=== PATIENT | female | born 1990 | race Caucasian/White ===

== ENCOUNTER 2016-11-16 21:19 | Outpatient (CLI) | payer BC, OTHER ==
[~2016-11-16] VITALS: Ht 162.6 cm; Wt 125.0 kg
[2016-11-16 22:31] VITALS: Ht 162.6 cm; Wt 125.0 kg
[2016-11-16 22:34] LABS: HEMATOCRIT 31.7 % (37-47); MEAN CELL VOLUME 84.1 fL (80-100); MEAN CORPUSCULAR HEMOGLOBIN 28.4 pg (25-34); PLATELET COUNT 199 K/uL (130-400); RED BLOOD COUNT 3.77 M/uL (4.2-5.4); WHITE BLOOD COUNT 12.09 K/uL (4.8-10.8)
[2016-11-16 22:46] LABS: MEAN CORPUSCULAR HGB CONC 33.8 g/dl (32-36)
[2016-11-16 22:51] LABS: INR 0.9 (0.9-1.1); PARTIAL THROMBOPLASTIN RATIO 1.1; PROTHROMBIN TIME (PATIENT) 9.8 SECONDS (9.0-12.0)
[2016-11-16 23:41] LABS: FIBRINOGEN* 365 mg/dl (184-400)
--- NOTE | 2016-11-17 02:24 | Discharge Instructions ---
Discharge Instructions Date of Service Nov 17, 2016. Admission Reason for Admission: Check Bleeding Discharge Discharge Diagnosis / Problem: bleading Discharge Goals Goal(s): Continuing OB care Activity Recommendations Activity Limitations: as noted below ACTIVITY RECOMMENDATIONS: See Labor Sheet. SPECIAL CARE INSTRUCTIONS: Call Doctor if: * Regular contractions every 5 minutes or greater than contractions in one hour. * Bleeding * Water breaks or is leaking * Decreased movement * Fever >100.4 degrees F * Pain not relieved by routine measures or pain medication ordered. FOLLOW UP VISIT: Return to Labor and Delivery on for /call for appointment time . Follow-up Visit with: When: . Current Hospital Diet Patient's current hospital diet: Discharge Diet Recommended Diet: Regular Diet Pending Studies Studies pending at discharge: no Medical Emergencies . Who to Call and When: Medical Emergencies: If at any time you feel your situation is an emergency, please call 911 immediately. . Non-Emergent Contact Non-Emergency issues call your: Specialist . . "Provider Documentation" section prepared by Tyrese Stockton. . VTE Core Measure Inpt VTE Proph given/why not?: Treatment not indicated
--- NOTE | 2016-11-17 06:49 | DIAGNOSTIC IMAGING REPORT ---
Limited ultrasound LIMITED (US) CLINICAL HISTORY: blending at 19 weeks gestation bleeding TECHNIQUE: Ultrasound COMPARISON STUDY: None FINDINGS: Single, viable intrauterine of approximately 19 weeks 5 days gestational age. Breech presentation. heart rate 131 bpm. IMPRESSION: Single, viable intrauterine estimated at 19 weeks 5 days gestational age. Electronically signed by: Tree Garay M.D. 11/17/2016 6:47 AM Dictated Date/Time: 11/17/2016 6:46 AM
--- NOTE | 2016-11-17 10:36 | HISTORY & PHYSICAL EXAMINATION ---
DATE OF ADMISSION: 11/16/2016 HISTORY OF PRESENT ILLNESS: This is a 26-year-old patient at 19+ weeks who presented to labor and delivery with bleeding. The patient reported that she had intercourse early on that day and had 2 episodes of vaginal bleeding. On arrival to labor and delivery, she had no shortness of breath, no chills, no fever. There was no gross bleeding. She did have some bleeding, however, in her underwear. The patient was evaluated with speculum exam after her ultrasound was reviewed. Ultrasound earlier showed anterior placenta. Upon speculum exam there was no blood in the vagina. The cervix appeared grossly normal. Interestingly enough there was not any sign of bleeding in the vaginal vault. As stated above, there was no gross blood in the vault as well. There were no lacerations or tears in the vulva or perineum. The patient was sent for an ultrasound which was reviewed and found to be unremarkable. Labs were done as well which was unremarkable. The patient was therefore finally discharged home in stable condition. 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 ASSESSMENT AND PLAN: A 26-year-old at 19+ weeks presented with complaints of bleeding. No bleeding is seen on physical exam. Ultrasound was done and was unremarkable. Labs are reviewed. The patient is discharged home in stable condition. The patient knows to follow up in clinic or call back if this occurs again.
== END 2016-11-17 02:32 | disposition home or self-care (01) ==
LOC: C.OPB 21:19 → C.LD 21:21 → C.OPB 11-17 02:32
PROVIDERS: ATTEND Obstetrics & Gynecology
DX: O46.92 Antepartum hemorrhage, unspecified, second trimester (principal); Z3A.19 19 weeks gestation of pregnancy

== ENCOUNTER 2017-04-02 11:07 | Inpatient (IN) | payer OTHER ==
[~2017-04-02] VITALS: Ht 162.6 cm; Wt 129.0 kg
[2017-04-02] MEDS ORDERED: LACTATED RINGER'S 1000ML 1,000 ML IV SCH (12:22)
[2017-04-02] MEDS ORDERED: LACTATED RINGER'S 1000ML 1,000 ML IV PRN (12:22)
[2017-04-02 12:38] VITALS: Ht 162.6 cm; Wt 129.0 kg
[2017-04-02] MEDS ORDERED: PRENTAB26 PO (12:41)
[2017-04-02] MEDS ORDERED: FERR1TAB23 (12:44)
--- NOTE | 2017-04-02 13:12 | HISTORY & PHYSICAL EXAMINATION ---
DATE OF ADMISSION: 04/02/2017 HISTORY OF PRESENT ILLNESS: The patient is a 27-year-old G2, P1 due date 04/08/2017 making that 39 weeks and 1 day today. She was seen in the office today for routine care and in the office was found to have spontaneous rupture of membranes, this was around 11:30 a.m. Speculum exam was done by Dr. Enriquez. She was found to be 3-4 cm, 50% effaced, and -2 station. She was grossly ruptured. Nitrazine positive. Ultrasound was done and estimated weight was 4776 grams, was cephalic. The patient is sent to labor and delivery for anticipation of labor. On arrival to labor and delivery, she had no shortness of breath, no chills, no fever, no bloody show. heart rate is category 1. Pelvic exam in labor and delivery is unchanged. COURSE: Has been unremarkable. The patient's is complicated with history of factor V Leiden. The patient is heterozygous for factor V and did not require any anticoagulation therapy. LABS: Blood type is A positive, antibody negative, rubella immune, GBS negative. PAST MEDICAL HISTORY: 1. The patient has history of factor V Leiden heterozygous: 2. History of PCOS. 3. History of anxiety. 4. History of headaches. PAST SURGICAL HISTORY: The patient had appendectomy, cholecystectomy and dental procedures done in the past. 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 weighed 7 pounds 5 ounces. ALLERGIES: No known drug allergies. SOCIAL HISTORY: The patient denies tobacco, drug or alcohol use. FAMILY HISTORY: Noncontributory. PHYSICAL EXAMINATION: GENERAL: Well-developed, well-nourished white female in moderate labor discomfort. Patient is morbidly obese, class 3 obesity. HEART: S1, S2, regular rhythm and rate. LUNGS: Clear to auscultation bilaterally. ABDOMEN: Gravid. heart rate is category 1. PELVIC: The patient is 3-4 cm, 50% effaced, and -2. Amniotic fluid is clear. EXTREMITIES: No cyanosis, clubbing or edema. ASSESSMENT AND PLAN: A 27-year-old G2, P1 at 39 weeks and 1 day, term premature rupture of membranes at 1100 hours. Bedside ultrasound today showed that the infant is 4776 grams. The patient is sent to labor and delivery for anticipation of labor. I have discussed the findings with the patient particularly the estimated weight. Even though the patient has had a baby in the past, her last delivery was a 7-pound . This is much larger and we have discussed risks of shoulder dystocia as well as brachial plexus injury. Infant is still less than 5000 grams and therefore elective is not the recommendation at the moment. Plan therefore is to watch the patient and hopefully have a vaginal delivery. LAKEISHA
[2017-04-02] MEDS ORDERED: LACTATED RINGER'S 1000ML 500 ML IV PRN ×2 (16:53→21:52)
[2017-04-02] MEDS ORDERED: OXYTOCIN 30 UNITS/500ML NSS IV PRN (17:00)
[2017-04-02] MEDS ORDERED: FENTANYL CITRATE INJ 50 MCG/1 ML 2 ML VIAL ONE (20:40)
[2017-04-02] MEDS ORDERED: FENTANYL 2MCG/ML ROPIV 1.25MG/ML 100ML BAG EPI ONE (20:40)
[2017-04-02] MEDS ORDERED: BUPIVACAINE 0.25% 30 ML VIAL ONE (20:40)
[2017-04-02] MEDS ORDERED: EpHEDrine SULFATE INJ 50 MG/ML AMP ONE (20:40)
[2017-04-02 21:03] LABS: HEMATOCRIT 31.4 % (37-47); MEAN CELL VOLUME 81.1 fL (80-100); MEAN CORPUSCULAR HEMOGLOBIN 26.6 pg (25-34); MEAN CORPUSCULAR HGB CONC 32.8 g/dl (32-36); MEAN PLATELET VOLUME 10.4 fL (7.4-10.4); PLATELET COUNT 229 K/uL (130-400); RED BLOOD COUNT 3.87 M/uL (4.2-5.4); WHITE BLOOD COUNT 16.64 K/uL (4.8-10.8)
[2017-04-02] MEDS ORDERED: NALOXONE HCL INJ 1 MG in SODIUM CHLORIDE 0.9% 1000ML 1,000 ML IV PRN (21:52)
[2017-04-02] MEDS ORDERED: NALBUPHINE HCL INJ 10 MG/ML AMP IV PRN (22:00)
[2017-04-02] MEDS ORDERED: NALOXONE HCL INJ 0.4 MG/1 ML VIAL/CARP IV PRN (22:00)
[2017-04-02] MEDS ORDERED: EpHEDrine SULFATE INJ 50 MG/ML AMP IV PRN (22:00)
[2017-04-02] MEDS ORDERED: DiphenhydrAMINE HCL 50 MG/ML VIAL IV PRN (22:00)
[2017-04-02] MEDS ORDERED: FENTANYL 2MCG/ML ROPIV 1.25MG/ML 100ML BAG EPI PRN (22:00)
[2017-04-02] MEDS ORDERED: TERBUTALINE SULFATE 1 MG/ML VIAL SQ STA (22:07)
[2017-04-03] MEDS ORDERED: CALCIUM CARBONATE 500 MG CHEWABLE ONE (01:33)
[2017-04-03] MEDS ORDERED: NURSING VERBAL MED ORDER ONE (01:45)
[2017-04-03] MEDS ORDERED: METHYLERGONOVINE MALEATE 0.2 MG/ML AMP ONE (03:39)
[2017-04-03] MEDS ORDERED: HYDROCORTISONE ACETATE 25 MG SUPP PR PRN (04:00)
[2017-04-03] MEDS ORDERED: ACETAMINOPHEN/CODEINE 300/30MG TAB PO PRN (04:00)
[2017-04-03] MEDS ORDERED: SUPERCREAM 0.870 % 15GM JAR EXT PRN (04:00)
[2017-04-03] MEDS ORDERED: OXYTOCIN 30 UNITS/500ML NSS IV PRN (04:00)
[2017-04-03] MEDS ORDERED: BENZOCAINE 20% AER SPR 82.5 GM CAN EXT PRN (04:00)
[2017-04-03] MEDS ORDERED: METHYLERGONOVINE MALEATE 0.2 MG/ML AMP IM ONE (04:00)
[2017-04-03] MEDS ORDERED: OXYCODONE/ACETAMINOPHEN 5-325 TAB PO PRN (04:00)
[2017-04-03] MEDS ORDERED: LANOLIN OINT EXT PRN ×2 (04:00)
[2017-04-03] MEDS ORDERED: TERBUTALINE SULFATE 1 MG/ML VIAL ONE (06:21)
--- NOTE | 2017-04-03 07:26 | Anesthesia Procedure Note ---
Anesthesia Epidural Removal Nt Date & Time Apr 03, 2017 at 07:26 Vital Signs Pain Intensity: 0.0 Notes Mental Status: alert / awake / arousable, participated in evaluation Nausea / Vomiting: adequately controlled Pain: adequately controlled Airway Patency, RR, SpO2: stable & adequate BP & HR: stable & adequate Hydration State: stable & adequate Neuraxial Anesthesia: was administered Anesthetic Complications: no major complications apparent, pt satisfied with anesthetic care Epidural: removed without complications, with tip intact
--- NOTE | 2017-04-03 07:40 | DELIVERY SUMMARY ---
DATE OF OPERATION: 04/02/2017 DELIVERY NOTE: The patient delivered a live male in left occiput anterior presentation. There was no nuchal cord. Estimated weight was 4700 grams, a second degree medial episiotomy was performed in anticipation of a large . This was discussed with the patient prior to delivery and patient had agreed to that. Placenta was spontaneously delivered. Inspection of the placenta showed a 3-vessel cord. Placenta appeared grossly normal. Inspection of the perineum showed the second degree medial episiotomy and a right small periurethral laceration. The second degree episiotomy was repaired in layers with 2-0 Vicryl. Rectal exam post repair showed good sphincter tone. There were no sutures palpated in the rectum. The right periurethral tear was repaired with 3-0 Vicryl. There was good hemostasis at the end of delivery. Estimated blood loss is 500 mL. 's weight is pending via pediatrics. Apgars 8 and 9. All instruments were removed from the vagina and accounted for x2 including sponges and needles. Baby and mother are doing well in recovery. I attest to the content of the Intraoperative Record and any orders documented therein. Any exceptions are noted below. GUALBERTOD
[2017-04-03 09:30] VITALS: BP 123/63; PULSE 104; TEMP 36.8
[2017-04-03] MEDS: IBUPROFEN 600 MG TAB PO PRN ×2 (09:47→19:39)
[2017-04-03] MEDS: FERROUS SULFATE 325 MG TAB PO SCH (11:00)
[2017-04-03] MEDS: DOCUSATE SODIUM 100 MG CAP PO SCH ×2 (11:00→19:38)
[2017-04-03] MEDS: PRENATAL VITAMIN TAB PO SCH (11:10)
[2017-04-03] MEDS: ACETAMINOPHEN 325 MG TAB PO PRN ×2 (12:09→21:08)
[2017-04-03 13:05] VITALS: BP 132/77; PULSE 85; TEMP 36.6; O2SAT 98
[2017-04-03 13:55] VITALS: BP 119/70; PULSE 84; TEMP 36.8
[2017-04-03 15:55] VITALS: BP 119/70; PULSE 84; TEMP 36.8
[2017-04-03 19:25] VITALS: BP 136/77; PULSE 100; TEMP 37
[2017-04-03 23:45] VITALS: BP 108/68; PULSE 85; TEMP 36.7
[2017-04-04 07:09] LABS: HEMATOCRIT 25.7 % (37-47)
[2017-04-04] MEDS: DOCUSATE SODIUM 100 MG CAP PO SCH (07:46)
[2017-04-04] MEDS: PRENATAL VITAMIN TAB PO SCH (07:46)
[2017-04-04] MEDS: FERROUS SULFATE 325 MG TAB PO SCH (07:46)
[2017-04-04] MEDS: ACETAMINOPHEN/CODEINE 300/30MG TAB PO PRN ×2 (07:47→13:56)
[2017-04-04 07:50] VITALS: BP 138/82; PULSE 98; TEMP 36.7
--- NOTE | 2017-04-04 08:16 | OB/GYN Progress Note ---
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 Patient is seen and examined. She feels well, no complaints. Likes to be discharged today Ambulating without dizziness Voiding without difficulty Tolerating regular diet with out N&V Bleeding is minimal No fever/ chills/ CP/ SOB/ N&V/ Leg pain Bottle feeding without problems Date Time Temp Pulse Resp B/P (MAP) Pulse Ox O2 Delivery O2 Flow Rate FiO2 04/03/17 23:45 36.7 85 18 108/68 (81) 04/03/17 23:45 Room Air 04/03/17 19:25 37.0 100 18 136/77 (96) Room Air 04/03/17 15:55 36.8 84 16 119/70 (86) Room Air 04/03/17 15:55 Room Air 04/03/17 13:05 36.6 85 20 132/77 (95) 98 Room Air 04/03/17 09:30 36.8 104 18 123/63 (83) Room Air 04/03/17 09:30 Room Air Last 24 Hours Test 04/04/17 06:28 Hemoglobin 8.2 g/dL Hematocrit 25.7 % PE: General: Alert, orientedx3, NAD Abd: soft, NT, fundus firm, below Umbilicus Perineum intact, Lochia rubra minimal Ext; NT, no edema AP: 27 yo s/p , ppd# 1 VSS Afebrile doing well Continue routine care Anemic: asymptomatic Will start iron bid Recheck H&H at noon All questions were answered Instructions were given when to call D/C home after labs
[2017-04-04] MEDS ORDERED: FRRS300 PO (08:17)
[2017-04-04] MEDS ORDERED: MTR600X PO (08:17)
[2017-04-04] MEDS ORDERED: CLC100 PO (08:17)
--- NOTE | 2017-04-04 08:18 | Discharge Instructions ---
Discharge Instructions Date of Service Apr 04, 2017. Admission Reason for Admission: R/O Rupture Of Membranes Discharge Discharge Diagnosis / Problem: Discharge Goals Goal(s): Routine recovery after delivery Medications Continue Dispensed Medications: lansinoh Activity Recommendations Activity Limitations: as noted below ACTIVITY RECOMMENDATIONS: * Gradual return to full activity over the next 2-3 weeks. * No lifting - nothing heavier than baby over the next 2-3 weeks. * Do not engage in vigorous exercise, sexual activity or sports until cleared by your physician. * Do not drive or operate any motorized equipment until cleared by your physician. * You may shower/bathe daily. BREAST CARE: If you are not breast feeding: * Wear a supportive bra 24 hours a day for one to two weeks. * Avoid stimulating your breasts and nipples as much as possible during the first few weeks after delivery. * When taking a shower, have the warm water hit your back, not breasts. * When your breasts feel full, apply ice packs. Usually three to four times a day helps ease the discomfort. * Take a mild pain medication (Tylenol/Motrin) when you are uncomfortable. If breast feeding: * Use breast milk to lubricate nipples. Lansinoh cream may be used for sore nipples. You do not need to remove cream prior to breast feeding. If using a different brand of cream, check the label for directions regarding removal of cream prior to nursing. * Wear a supportive bra. * If having problems with breasts or breast feeding, call a informatics consultant or your health care provider. EPISIOTOMY CARE: After delivery, if you have an episiotomy (stitches), the following steps will ease discomfort and aid healing. * For the first 24 hours after delivery, place ice packs next to your episiotomy to help reduce swelling. * After the first 24 hour-period, sitz baths, either portable or in the tub, are suggested. A shower with a shower arm sprayed over the episiotomy may be comforting. * Pascale care should be done after each voiding and bowel movement. Squirt warm water from a plastic bottle over the perineum (region of the body between the anus and urinary opening) and pat dry. * Use Dermoplast to ease discomfort. Shake container. [place] directly over the episiotomy. * Place a Tucks on a clean sanitary pad next to your episiotomy. OVER THE COUNTER MEDICATION: * For discomfort or pain, you may use Acetaminophen (Tylenol), Ibuprofen (Advil ), or Naproxen (Aleve) following the package directions. * For constipation you may use Colace following the package directions. SPECIAL CARE INSTRUCTIONS: When you are discharged from the hospital, it is important for you to follow the instructions listed below: * During the first week at home, you should be able to care for yourself and your baby. In addition, the usual light household activities are encouraged. * Limit your activities to the way you feel. Do not try to clean the house or move furniture. Be sensible. * If you actively engage in sports and have done so up until the time of your delivery, you may resume these activities as soon as you feel able. This may take up to one month or even longer. Use good judgment. * Continue to take your vitamins for at least six weeks after the of your baby. * Your diet need not be limited unless you were on a special diet before your delivery. Breast-feeding mothers need around 2500 calories per day and at least 64-80 ounces of fluid per day (8 to 10 glasses). * You should eat foods from the four major food groups. Crash diets or fad diets are to be avoided. Eating lean meats, fresh fruits and vegetables, low-fat dairy products, high fiber foods and a regular exercise program, will help you get back to your pre- weight without putting your health at risk. * Constipation is sometimes a problem after delivery. Take a mild laxative as needed. If breast feeding, Milk of Magnesia is acceptable to use. You may use a suppository or Fleets enema if no episiotomy. * A daily shower or tub bath is suggested. Be sure to thoroughly and gently dry the perineum. * A bloody vaginal discharge will usually continue until around four weeks post . A small amount of bleeding may continue for as long as six weeks. Vaginal discharge changes from the bright red bleeding after delivery to pink then brownish and finally yellowish-pink before becoming white and disappearing. * Bleeding may increase with activity. Your first period may come in 4-8 weeks. If you are breast feeding, your period may be delayed even longer. * [place] (sex) can begin whenever both you and your partner feel comfortable and do not have any form of genital infection. It is recommended that you wait until after your return appointment and discuss with your physician. If you have questions, please talk to your health care practitioner. A condom should be used to prevent infection and . * Foreplay, gentle intercourse and lubrication is very important the first several times to prevent pain. A water-based lubricant such as K-Y jelly or Astroglide may be used. * Tampons may be used six weeks after delivery. * Douching should be avoided for 6 weeks after delivery. * If you have RH negative blood and your baby is RH positive, you will receive RHOGAM by injection prior to discharge. The nurse will give you a card to keep with you that has the date and place that you received RHOGAM after delivery. * During your care, you had a Rubella screen done to check for the presence of rubella antibodies in your blood. If your test was negative, you will receive a Rubella vaccine prior to discharge. This vaccine may cause a fever, soreness at the injection site and flu-like symptoms. If these symptoms persist, notify your health care practitioner. is not advised for three months after a Rubella vaccine. There is a higher chance of having a baby with defects if conceived within three months of getting the vaccine. * If you were discharged 24 hours from delivery or before 48 hours: Visiting nurses will come to your home 48 hours after discharge to assess you and your baby. The visiting nurse will meet with you while you are in the hospital to arrange a time and get directions to your home. * Verbalizes understanding of car seat law as reviewed with patient nursing. * Car Seat hand-out given and reviewed with patient by nursing. * Shaken baby information reviewed with patient by nursing. Call you doctor if: * Heavy bleeding (saturating several pads an hour) or passing clots the size of your fist. * A fever >101 degrees F (38.3 degrees C) on two occasions four hours apart and/or chills. * Unusual pain in the pelvic or vaginal areas. * "Baby Blues" lasting longer than two weeks. If you have any questions or concerns, call your health care practitioner at . FOLLOW-UP VISIT: * Please call the office at to schedule a 6 week examination. It is important you keep this appointment. * It is important for you to make arrangements for either yearly or twice yearly check-ups thereafter. . Current Hospital Diet Patient's current hospital diet: Regular OB Diet Discharge Diet Recommended Diet: Regular Diet Pending Studies Studies pending at discharge: no Medical Emergencies . Who to Call and When: Medical Emergencies: If at any time you feel your situation is an emergency, please call 911 immediately. . Non-Emergent Contact Non-Emergency issues call your: Surgeon, Specialist Call Non-Emergent contact if: temperature is above 100.5, your pain is not controlled, your pain is worsening . . "Provider Documentation" section prepared by Nakul Vann. . VTE Core Measure Inpt VTE Proph given/why not?: Treatment not indicated
[2017-04-04 11:45] LABS: HEMATOCRIT 25.7 % (37-47)
[2017-04-04 14:20] VITALS: BP_DIAS 82; PULSE 98; TEMP 36.7
[2017-04-04] MEDS ORDERED: BISACODYL 5 MG TABEC PO SCH (20:00)
[2017-04-04] MEDS ORDERED: FERROUS SULFATE 325 MG TAB PO SCH (20:00)
[2017-04-05] MEDS ORDERED: BISACODYL 10 MG SUPP PR PRN (07:00)
== END 2017-04-04 14:23 | disposition home or self-care (01) | DRG 775 ==
LOC: C.OPB 11:07 → C.LD 11:07 → C.OPB 12:23 → C.OBG 04-03 09:30 → EDSTATUS 04-03 11:13
PROVIDERS: ADMIT Obstetrics & Gynecology; ATTEND Obstetrics & Gynecology
PROC: 0W8NXZZ Division of Female Perineum, External Approach (ICD-10-PCS; principal; 2017-04-02)
PROC: 10E0XZZ Delivery of Products of Conception, External Approach (ICD-10-PCS; principal; 2017-04-02)
DX: O36.63X0 Maternal care for excessive fetal growth, third trimester, not applicable or unspecified (principal); O99.214 Obesity complicating childbirth; O76 Abnormality in fetal heart rate and rhythm complicating labor and delivery; E66.01 Morbid (severe) obesity due to excess calories; Z37.0 Single live birth; Z3A.39 39 weeks gestation of pregnancy

== ENCOUNTER → 2018-01-19 | Outpatient (CLI) | payer OTHER ==
[~2018-01-19] MED LIST: CLC100 PO; FRRS300 PO; MTR600X PO; PRENTAB26 PO
== END | disposition home or self-care (01) ==
LOC: C.LABSPEC 13:20
PROVIDERS: ATTEND Obstetrics & Gynecology
DX: Z34.81 Encounter for supervision of other normal pregnancy, first trimester (principal); Z3A.00 Weeks of gestation of pregnancy not specified

== ENCOUNTER → 2018-01-21 | Outpatient (CLI) | payer OTHER | END | disposition home or self-care (01) | LOC: C.PAPS 13:45 | PROVIDERS: ATTEND Obstetrics & Gynecology | DX: Z12.4 Encounter for screening for malignant neoplasm of cervix (principal); R87.612 Low grade squamous intraepithelial lesion on cytologic smear of cervix (LGSIL) ==

== ENCOUNTER 2019-04-04 07:43 | Inpatient (IN) ==
[2019-04-04] MEDS ORDERED: LACTATED RINGER'S 1,000 ML IV PRN (08:57)
[2019-04-04] MEDS ORDERED: OXYTOCIN 30 UNITS/500 ML BAG IV PRN ×3 (08:57→12:53)
[2019-04-04] MEDS ORDERED: SODIUM CHLORIDE 0.9% 250 ML IV PRN ×2 (09:15)
--- NOTE | 2019-04-04 09:15 | History & Physical Report ---
Date of Service April 04, 2019 Assessment & Plan (1) Supervision of normal intrauterine in multigravida: Thierno Gordon is a 29yo with a PMH of Heterozygosity of Factor V Leiden, PCOS, LGSIL on pap smear, asthma, uterine fibroid, and anxiety here for induction of labor at 40 weeks due to post-dates confirmed by ultrasound. - Pitocin ordered for aid of contractions - AROM at 9:10 AM today - amniotic fluid initially pink however now showing light meconium - Epidural for pain by patient request. Present on Admission?: Yes (2) Uterine leiomyoma: - 10 cm fibroid in on right side of uterus dx by ultrasound Present on Admission?: Yes (3) LGSIL on Pap smear of cervix: Present on Admission?: Yes (4) Heterozygous factor V Leiden mutation: - follows with Dr. Kelly for Hematology - recommended against chemical VTE with a standard vaginal delivery in post care - if progresses to C/S will anticoagulate post- as appropriate Present on Admission?: Yes (5) Asthma: - well controlled with BID fluticasone inhaler - previously required nighttime oxygen when uncontrolled - will monitor O2 status to ensure no exacerbation Present on Admission?: Yes (6) LGA (large for gestational age) fetus affecting management of mother: (7) History of shoulder dystocia in prior : History of Present Illness Primary Care Provider: Juanita Ward DO Thierno Gordon is a 29yo with a PMH of Heterozygosity of Factor V Leiden, PCOS, LGSIL on pap smear, asthma, uterine fibroid, and anxiety here for induction of labor at 40 weeks due to post-dates confirmed by ultrasound. No complications with this . Has met with Dr. Kelly from Hematology regarding her procoagulant mutations. He recommended against blood thinners during the and only using them if she should have a . Patient has never been on anticoagulation and denies any hx of clots in legs or lungs. Has been attending OB appointments regularly. Asthma well controlled with twice daily fluticasone inhaler. Previously required 2L nighttime oxygen prior to being on steroid inhaler and no longer requires the nighttime oxygen. Was supposed to be tested for sleep apnea but did not follow through with testing. Still feeling contractions and proper movement. Denies any loss of fluids or vaginal blood loss. Labs - Blood type: A+ - Antibody screen: negative - H.1 - Hct: 30.7 - Wbc: 11.28 - Plt 212 (10/16) - Rubella: immune - VDRL/RPR: nonreactive - Gonorrhea: negative - Chlamydia: negative - HIV: negative - HbSAg: negative - GBS: negative - Glucose tolerance x 2: passed x2 Surgical Hx: hx appendectomy, cholecystectomy, wisdom teeth removal OB hx: hx of miscarriage, delivery, shoulder dystocia [employer] hx: hx of LGSIL on cervical exam Allergies Allergy/AdvReac Type Severity Reaction Status Date / Time No Known Allergies Allergy Verified 04/01/19 16:26 Patient History Medical History Uterine leiomyoma (Acute) fibroid PCOS (polycystic ovarian syndrome) (Acute) Obesity during , antepartum (Acute) Nocturnal hypoxia (Acute) uses 2L NC at HS LGSIL on Pap smear of cervix (Acute) Pap smear +HSV, needs repeated at 6 weeks pp Heterozygous factor V Leiden mutation (Acute) No medications; See MFM and Hem/Onc; no treatment unless needs c/section Anxiety (Acute) Encounter for anatomic survey (Resolved) Encounter for pre-operative examination (Resolved) Encounter for supervision of normal in multigravida in first trimester (Resolved) demise (Resolved) 19 week demise; 04/25/18; PPROM Supervision of normal intrauterine in multigravida in second trimester (Resolved) Supervision of normal intrauterine in multigravida in third trimester (Resolved) Asthma exacerbation uses rescue inhalers and meds History of depression no meds- no therapy. History of varicella vaccination Nevus Surgical History History of cholecystectomy at age 23 Hx of appendectomy at age 22 [employer] teeth extracted removed as a teenager Family History Mother Anxiety Depression with anxiety Depression Factor V Leiden mutation Gallbladder disease Grandfather (Paternal) Diabetes Brother Drug abuse Kidney stones Aunt Factor V Leiden mutation Lung cancer Cancer Other No significant family history Social History Preferred Language: Italian Communication Ability: Effective Visual Impairment: No Limitations Hearing Ability: Normal Water Supply Technician Required: No Beliefs That Will Affect Care: None marital status: Current Living Situation: Spouse and Family Current Living Situation Comment: lives with and children 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 Other Information That Helps Us Care for You: No Feels Safe at Home: Yes Safety Concerns: Feels Safe At This Time Smoking Status: Former smoker Do You Dip or Chew Tobacco: No ; Second Hand Exposure: No ; Tobacco Cessation Education Requested by Patient: No Hx Alcohol Use: No Hx Substance Use: No Dental Care, Regularly: Yes Physical Activity Frequency: Does not Exercise Seatbelt Use: always Sunscreen Use: Yes Review of Systems no fever, no chills and no fatigue no cough, no dyspnea and no wheezing + edema; no chest pain and no calf pain + cramping; no abdominal pain, no nausea, no vomiting, no constipation and no di arrhea/loose stools no dysuria and no difficulty urinating + back pain Physical Exam Constitutional: well developed and well nourished Respiratory: normal respiratory effort; no respiratory distress, no labored breathing and no cough Auscultation: no diminished lung sounds, no crackles, no rales, no rhonchi and no wheezes Cardiovascular: Rate/Rhythm: regular rate and regular rhythm Extremities: normal capillary refill and + pedal edema; no calf tenderness Gastrointestinal (Abdomen): Inspection/Auscultation: + abdomen distended and normal bowel sounds Percussion/Palpation: abdomen nontender and no guarding Genitourinary: Speculum/Bimanual Exam: + uterus enlarged OB Exam Abdomen: + fundal height Fundus: + firm and + relation to umbilicus (high above umbilicus on right side); not tender OB Exam Monitor Tracing: + external FHT monitor used Cervical Exam per OB at 9:10 AM Dilation - 5 cm Effacement - 60% Station - -2 Results & Data Vital Signs (Past 12 Hours) Vital Signs Temp Pulse Resp BP 04/04/19 08:37 36.8 C 99 H 22 137/77 04/04/19 07:45 36.8 C 99 H 22 137/77 Code Status & VTE Plan VTE Prophylaxis Plan VTE Prophylaxis will be ordered: No Reason for no VTE drug order: Treatment not indicated (per hematology: will chemically VTE prophylax if converts to C/S) Reason for no VTE mechanical prophylaxis: Treatment not indicated Monitoring External Monitor Category I tracing Baseline HR 130 Moderate variability No accelerations No decelerations Tocodynamometer Inconsistent contractions every 3-4 minutes Supervising Physician Co-Signing Physician Notes Patient seen and evaluated and agree with the above findings and plan. I discussed with Thierno and her partner the significantly increased risk of a shoulder dystocia do to prior history and LGA. Also reviewed risk of PPH do to LGA and large uterine fibroid. Resident Activity Tracking Resident Involvement: Resident Care Provided Care Provided: OB Delivery (1) Asthma Asthma complication type: uncomplicated Asthma persistence: intermittent Asthma severity: mild Qualified Code(s): J45.20 - Mild intermittent asthma, uncomplicated
[2019-04-04 09:37] LABS: Hematocrit (blood only) 30.9 % (37-47); Hemoglobin 9.8 g/dL (12.0-16.0); Mean Corpuscular Hemoglobin 25.2 pg (25-34); Mean Corpuscular Volume 79.4 fL (80-100); Mean Platelet Volume 10.6 fL (7.4-10.4); Platelet Count 205 K/uL (130-400); RDW Coefficient of Variation 16.8 % (11.5-14.5); RDW Standard Deviation 47.9 fL (36.4-46.3); Red Blood Count 3.89 M/uL (4.2-5.4); White Blood Count 11.45 K/uL (4.8-10.8)
[2019-04-04 09:38] LABS: Mean Corpuscular Hgb Conc 31.7 g/dL (32-36)
[2019-04-04] MEDS ORDERED: INFLUENZA ADMINISTRATION CHARGE ONE (12:00)
[2019-04-04] MEDS ORDERED: INFLUENZA VIRUS QUAD VACCINE 0.5 ML SYR IM ONE (12:00)
[2019-04-04] MEDS ORDERED: fentaNYL citrate 100 MCG/2 ML VIAL ONE (12:07)
[2019-04-04] MEDS ORDERED: ePHEDrine sulfate 50 MG/ML AMP ONE (12:08)
[2019-04-04] MEDS ORDERED: BUPIVACAINE 0.25% 30 ML VIAL ONE (12:08)
[2019-04-04] MEDS ORDERED: fentaNYL 2MCG/ML ROPIV 1.25MG/ML 100 ML BAG EPI ONE (12:09)
--- NOTE | 2019-04-04 12:13 | Anesthesiology Progress Note ---
Date of Service April 04, 2019 Anesthesia Post Procedure Vital Signs Vital Signs: Temp Pulse Resp BP 04/04/19 12:08 90 108/58 L 04/04/19 11:06 89 120/64 04/04/19 10:50 84 130/61 04/04/19 10:36 93 H 125/57 L 04/04/19 10:21 85 22 113/56 L 04/04/19 10:05 96 H 141/70 H 04/04/19 09:50 36.8 C 96 H 20 140/67 04/04/19 08:37 36.8 C 99 H 22 137/77 04/04/19 07:45 36.8 C 99 H 22 137/77 Transfer of Care Handoff Completed per policy Notes Mental Status: alert / awake / arousable and participated in evaluation Patient Amnestic to Procedure: Yes Nausea / Vomiting: adequately controlled Pain: adequately controlled Airway Patency, RR, SpO2: stable & adequate BP & HR: stable & adequate Hydration State: stable & adequate Anesthetic Complications: no major complications apparent and Pt Satisfied with anesthetic care
[2019-04-04] MEDS ORDERED: DiphenhydrAMINE HCL 50 MG/ML VIAL IV PRN (12:16)
[2019-04-04] MEDS ORDERED: ePHEDrine sulfate 50 MG/ML AMP IV PRN (12:16)
[2019-04-04] MEDS ORDERED: NALOXONE HCL 0.4 MG/1 ML VIAL/CARP IV PRN (12:16)
[2019-04-04] MEDS ORDERED: fentaNYL 2MCG/ML ROPIV 1.25MG/ML 100 ML BAG EPI PRN (12:16)
[2019-04-04] MEDS ORDERED: NALBUPHINE HCL INJ 10 MG/ML AMP IV PRN (12:16)
[2019-04-04] MEDS ORDERED: NALOXONE HCL 1 MG in SODIUM CHLORIDE 0.9% 1000ML 1,000 ML IV PRN (12:16)
[2019-04-04] MEDS ORDERED: ONDANSETRON INJ 2 MG/ML 2 ML VIAL IV PRN (12:16)
--- NOTE | 2019-04-04 12:16 | Anesthesiology Consultation ---
Date of Service April 04, 2019 Assessment & Plan Chart Review Chart Review: Acceptable Risk for Labor Epidural ASA ASA2 Proposed Anesthesia Anesthesia Type: Labor Epidural History Height/Weight Height: 5 ft 4 in Weight: 136.531 kg Allergies Allergy/AdvReac Type Severity Reaction Status Date / Time No Known Allergies Allergy Verified 04/01/19 16:26 Medications Home Medications Medication Instructions Recorded Confirmed Last Taken Vitamin 1 tab PO DAILY 04/25/18 04/04/19 04/04/19 05:30 albuterol sulfate 2 puff INHALATION QID PRN 04/25/18 04/04/19 04/01/19 07:00 loratadine 10 mg PO DAILY 04/25/18 04/04/19 04/04/19 05:30 montelukast 10 mg tablet 10 mg PO DAILY #90 tab 11/15/18 04/04/19 04/04/19 05:30 fluticasone propion-salmeterol See Rx Instructions .ROUTE .COMPLEX 04/04/19 04/04/19 04/04/19 05:30 [AirDuo RespiClick] iron 10 mg PO DAILY 04/04/19 04/04/19 04/04/19 05:30 Active Medications Generic Name Dose Route Start Last Admin Trade Name Freq PRN Reason Stop Dose Admin Lactated Ringer's 1,000 mls @ 125 mls/hr 04/04/19 08:57 04/04/19 12:04 Lr IV 04/06/19 08:56 999 mls/hr .Q8H PRN Infusion L&D Protocol Protocol Oxytocin 30 units in 500 mls @ 8 mls/hr 04/04/19 09:15 04/04/19 11:30 Pitocin IV 04/06/19 09:14 0.48 units/hr .Q24H PRN 8 mls/hr Labor Induction/Augmentation Titration Protocol 0.48 UNITS/HR Past Medical History Medical History Uterine leiomyoma (Acute) fibroid PCOS (polycystic ovarian syndrome) (Acute) Obesity during , antepartum (Acute) Nocturnal hypoxia (Acute) uses 2L NC at HS LGSIL on Pap smear of cervix (Acute) Pap smear +HSV, needs repeated at 6 weeks pp Heterozygous factor V Leiden mutation (Acute) No medications; See MFM and Hem/Onc; no treatment unless needs c/section Anxiety (Acute) Encounter for anatomic survey (Resolved) Encounter for pre-operative examination (Resolved) Encounter for supervision of normal in multigravida in first trimester (Resolved) demise (Resolved) 19 week demise; 04/25/18; PPROM Supervision of normal intrauterine in multigravida in second trimester (Resolved) Supervision of normal intrauterine in multigravida in third trimester (Resolved) Asthma exacerbation uses rescue inhalers and meds History of depression no meds- no therapy. History of varicella vaccination Nevus Exercise / Class Metabolic Activity II 4-5 Yardwork/Stairs/Walk up hill Past Family History Family History Mother Anxiety Depression with anxiety Depression Factor V Leiden mutation Gallbladder disease Grandfather (Paternal) Diabetes Brother Drug abuse Kidney stones Aunt Factor V Leiden mutation Lung cancer Cancer Other No significant family history Past Surgical History Surgical History History of cholecystectomy at age 23 Hx of appendectomy at age 22 [place] teeth extracted removed as a teenager Past Anesthesia History No Hx of Anesthesia Complications and No Family Hx of Anesthesia Complications History of PONV No Hx of PONV and No Hx of Motion Sickness Social History Smoking Status: Former smoker Do You Dip or Chew Tobacco: No Hx Alcohol Use: No Hx Substance Use: No substance use type: does not use Review of Systems denies fever/cough/ colds/ chest pain/ SOB/ MUKUL denies NE/CVA/Seizure Physical Exam Vital Signs Last Vital Signs Temp 36.8 C 04/04/19 09:50 Pulse 98 H 04/04/19 12:34 Resp 22 04/04/19 10:21 BP 131/82 04/04/19 12:26 Pulse Ox 92 04/04/19 12:34 Testing Laboratory Results 04/04/19 09:25 Blood Type A Positive 04/04/19 09:25 Antibody Screen NEGATIVE 04/04/19 09:25
[2019-04-04] MEDS ORDERED: METHYLERGONOVINE MALEATE 0.2 MG/ML AMP ONE (12:39)
[2019-04-04] MEDS ORDERED: HYDROCORTISONE ACETATE 25 MG SUPP PR PRN (12:53)
[2019-04-04] MEDS ORDERED: bisacodyL 10 MG SUPP PR PRN (12:53)
[2019-04-04] MEDS ORDERED: METHYLERGONOVINE MALEATE 0.2 MG/ML AMP IM ONE (12:53)
[2019-04-04] MEDS ORDERED: ACETAMINOPHEN 325 MG TAB PO PRN (12:53)
[2019-04-04] MEDS ORDERED: SUPERCREAM 0.870% 15 GM JAR EXT PRN (12:53)
[2019-04-04] MEDS ORDERED: DIPHTHERIA/TETANUS/PERTUSSIS 0.5 ML SYR/VIAL IM ONE (12:53)
[2019-04-04] MEDS ORDERED: miSOPROStoL 200 MCG TAB PR ONE (12:53)
[2019-04-04] MEDS ORDERED: BENZOCAINE 20% AER SPR 82.5 GM CAN EXT PRN (12:53)
[2019-04-04] MEDS ORDERED: IBUPROFEN 600 MG TAB PO ONE (13:07)
[2019-04-04] MEDS ORDERED: miSOPROStoL 200 MCG TAB ONE (13:08)
--- NOTE | 2019-04-04 17:36 | Delivery Summary ---
DATE OF OPERATION: 04/04/2019 PROCEDURE: Normal spontaneous vaginal delivery with a first degree perineal laceration repair. SURGEON: Emanuel Fernandez MD. PREOPERATIVE DIAGNOSES: 1. Single intrauterine at 39 weeks 6 days gestational age. 2. Large for gestational age fetus with estimated weight at 9.5 pounds. 3. Uterine leiomyoma of greater than 10 cm. 4. Low grade Pap smear. 5. Heterozygous factor V Leiden mutation without history of clots. 6. Asthma. 7. Prior history of shoulder dystocia with second baby. COMPLICATIONS: None. FINDINGS: Viable female infant with weight pending and Apgars of 7 and 9 at 1 and 5 minutes respectively. ESTIMATED BLOOD LOSS: 300 mL. DRAINS: None. FLUIDS: Continuous lactated ringer. URINE OUTPUT: Not measured. INDICATIONS: The patient is a 29-year-old G4, P2-0-1-2, admitted at 39 weeks 6 days gestational age for elective induction of labor. At initial presentation, the patient was found to be 5 cm dilated, 50% effaced, -2 station. She underwent artificial rupture of membranes for clear fluid and was started on oxytocin per regular protocol. Prior to starting the patient on induction process, we did discuss the patient's history of large for gestational age fetus and current as well as prior history of shoulder dystocia, both of which increased the patient's risk of a recurrent shoulder dystocia considerably and discussed the possibility of injury to baby during delivery. We also further discussed the patient's history of a large uterine fibroid and discussed that this could pose increased risks for bleeding after delivery and discussed a plan to decrease risk of bleeding with a liberal use of uterotonic medications. We also discussed the possibility of the need for blood transfusions if bleeding is heavy and type and cross for 2 units. After rupture of membranes and start of oxytocin, the patient progressed in labor over approximately 3-4 hour period to complete-complete +2 station, at which time she felt there was a strong urge to push. The patient pushed for approximately 2 contractions to achieve ____ delivery of the head. DESCRIPTION OF PROCEDURE: The patient progressed to 10 cm dilated, 100% effaced, +2 station, pushed over intact perineum without anesthesia and delivered a viable female infant with weight and Apgars as noted above. Head of the delivered in JAD position, rest into right transverse. No nuchal cord was noted. Body and shoulders quickly followed. was delivered to the maternal abdomen and noted to be vigorous soon after delivery. A 30-second delayed cord clamping was initiated after which the cord was double clamped and cut. was shortly thereafter taken to the warmer for further observation. Cord segment and cord blood was obtained. Attention was then turned to deliver the placenta, which was delivered intact with 3-vessel cord with gentle cord traction. On inspection of the perineum, vagina, and cervix, there were noted to be a first degree perineal laceration which was repaired with 3-0 Vicryl in continuous running stitch. Needle, sponge and instrument counts were correct at the completion of the case. We did give the patient 1 dose of IM Methergine and 800 mcg of Cytotec per rectum as prophylaxis for heavy bleeding due to the large for gestational age fetus and large uterine fibroid. Both mother and were stable in the immediate post-delivery period. I attest to the content of the Intraoperative Record and any orders documented therein. Any exception s are noted below.
[2019-04-04] MEDS: IBUPROFEN 600 MG TAB PO PRN ×2 (17:54→22:06)
[2019-04-04] MEDS: DOCUSATE SODIUM 100 MG CAP PO SCH (20:30)
[2019-04-05 06:33] LABS: Hematocrit (blood only) 28.5 % (37-47); Hemoglobin 9.2 g/dL (12.0-16.0); Mean Corpuscular Hemoglobin 25.2 pg (25-34); Mean Corpuscular Hgb Conc 32.3 g/dL (32-36); Mean Corpuscular Volume 78.1 fL (80-100); Mean Platelet Volume 10.2 fL (7.4-10.4); Platelet Count 171 K/uL (130-400); RDW Coefficient of Variation 16.6 % (11.5-14.5); RDW Standard Deviation 47.1 fL (36.4-46.3); Red Blood Count 3.65 M/uL (4.2-5.4); White Blood Count 13.06 K/uL (4.8-10.8)
--- NOTE | 2019-04-05 07:04 | Obstetrical Progress Note ---
Date of Service <Tiffany Rivas MD - Last Filed: 04/05/19 07:04> April 05, 2019 Assessment & Plan <Tiffany Rivas MD - Last Filed: 04/05/19 07:04> (1) Encounter for care and examination after delivery: 29 yo F , PPD 1 s/p after induction at 39w6d. Hx Factor V leiden mutation, PCOS, 10 cm uterine fibroid, LGSIL on pap smear. - continue supportive care and teaching for baby care - and bottle feeding - progressing appropriately toward discharge. Day #:: 1 Subjective <Tiffany Rivas MD - Last Filed: 04/05/19 07:04> Ambulation: ambulating normally Voiding: no voiding problems Passing Gas:: Yes Diet Tolerance:: regular diet Feeding Type:: breast feeding Current Pain Level(1-10): 0 Constitutional: + fatigue; no fever and no chills Respiratory: no cough and no dyspnea No shortness of breath Cardiovascular: + edema; no chest pain, no syncope and no calf pain Breast: no breast pain Gastrointestinal: + cramping; no abdominal pain, no nausea, no vomiting, no constipation and no diarrhea/loose stools Genitourinary (female): no dysuria and no difficulty urinating Neurologic: no headache(s) Physical Exam <Tiffany Rivas MD - Last Filed: 04/05/19 07:04> Constitutional well developed and well nourished Respiratory normal respiratory effort; no respiratory distress, no labored breathing and no cough Auscultation: no crackles, no rales, no rhonchi and no wheezes Cardiovascular Rate/Rhythm: regular rate and regular rhythm Heart Sounds: no gallop, no murmur and no cardiac rub Extremities: + pedal edema Gastrointestinal (Abdomen) Inspection/Auscultation: + abdomen distended and normal bowel sounds Percussion/Palpation: + abdomen tender and abdomen soft; no guarding Skin No erythema or tenderness of calves bilaterally Genitourinary Uterus difficult to palpate do to patient's body habitus. She was more tender to palpation on the inferior portion of her pannus closer to where the uterus should be located. Results & Data <Tiffany Rivas MD - Last Filed: 04/05/19 07:04> Vital Signs (Past 12 Hours) Vital Signs Temp Pulse Resp BP Pulse Ox 04/05/19 03:40 36.5 C 86 18 123/79 97 04/04/19 23:20 36.9 C 83 18 119/77 97 04/04/19 19:35 36.9 C 95 H 18 121/78 95 <Emanuel Fernandez MD - Last Filed: 04/05/19 08:16> Co-Signing Physician Notes Patient seen and evaluated and agree with the above findings and plan. Doing well post op. Continue routine care. Stable for discharge Resident Activity Tracking <Tiffany Rivas MD - Last Filed: 04/05/19 07:04> Resident Involvement: Resident Care Provided Care Provided: OB Delivery
[2019-04-05] MEDS ORDERED: PRENATAL VITAMIN 1 TAB PO SCH (08:00)
[2019-04-05] MEDS: DOCUSATE SODIUM 100 MG CAP PO SCH (08:34)
[2019-04-05 09:05] VITALS: BP 128/78; PULSE 85; TEMP 97.5; O2SAT 98
[2019-04-05] MEDS ORDERED: bisacodyL 5 MG TABEC PO SCH (20:00)
== END 2019-04-05 13:44 | disposition home or self-care (01) | DRG 806 ==
LOC: 4S1 07:43 → 4S2 17:00

== ENCOUNTER 2019-11-04 11:20 | Observation (INO) ==
--- NOTE | 2019-10-19 11:06 | PAT Medication Instructions ---
Medication Instructions Date of Service October 19, 2019 Home Medications Medication Instructions Recorded fluticasone 232 mcg-salmeterol 14 1 puffs INHALATION Q12H #1 ea 08/29/19 mcg/actuation breath activated powdr albuterol sulfate 2 puff INHALATION QID PRN fluticasone 232 mcg-salmeterol 14 mcg/actuation breath activated powdr 1 puffs INHALATION Q12H norethindrone (contraceptive) 0.35 mg PO QAM bupropion HCl 300 mg 24 hr tablet, extended release 450 mg PO QAM buspirone 15 mg tablet 35 mg PO BID lorazepam 0.5 mg tablet 0.5 mg PO DAILY PRN sertraline 50 mg tablet 50 mg PO DAILY Take morning of surgery With a small sip of water, OTHERWISE NOTHING TO EAT OR DRINK AFTER MIDNIGHT: albuterol sulfate 2 puff INHALATION QID PRN (if needed, and bring with you to [facility]) fluticasone 232 mcg-salmeterol 14 mcg/actuation breath activated powdr 1 puffs INHALATION Q12H bupropion HCl 300 mg 24 hr tablet, extended release 450 mg PO QAM buspirone 15 mg tablet 35 mg PO BID lorazepam 0.5 mg tablet 0.5 mg PO DAILY PRN (if needed) sertraline 50 mg tablet 50 mg PO DAILY norethindrone (contraceptive) 0.35 mg PO QAM Take evening before surgery albuterol sulfate 2 puff INHALATION QID PRN (if needed) fluticasone 232 mcg-salmeterol 14 mcg/actuation breath activated powdr 1 puffs INHALATION Q12H buspirone 15 mg tablet 35 mg PO BID lorazepam 0.5 mg tablet 0.5 mg PO DAILY PRN (if needed) Other Notes If you have any questions please call us at [phone] or [phone] or [phone] or [phone]
--- NOTE | 2019-10-19 11:11 | Anesthesiology Consultation ---
Date of Service October 19, 2019 Assessment & Plan (1) Encounter for pre-operative examination: TEST AM DOS COVID Status: As of [facility] appointment 10/18Patient denies any travel outside of [facility], known exposure/contacts, symptoms, or testing for coronavirus. Chart Review Chart Review: Acceptable Risk for Surgery and Patient seen in Pre Admission Testing Teaching & Discussion Instructed NPO after midnight before surgery, except medications with 15 cc of w ater. Medication instructions provided according to the [facility] guidelines. History Surgery Operation Date: 11/04/19 07:30 Proposed Procedures p Robotic Total Laparoscopic Hysterectomy - Emanuel Fernandez MD Height/Weight Height: 5 ft 4 in Weight: 115 kg Allergies Allergy/AdvReac Type Severity Reaction Status Date / Time No Known Drug Allergies Allergy Verified 10/19/19 10:13 nickel AdvReac Mild Rash Verified 10/19/19 10:13 Medications Home Medications Medication Instructions Recorded Confirmed Last Taken albuterol sulfate 2 puff INHALATION QID PRN 04/25/18 10/19/19 04/01/19 07:00 fluticasone 232 mcg-salmeterol 14 1 puffs INHALATION Q12H #1 ea 08/29/19 10/19/19 Unknown mcg/actuation breath activated powdr norethindrone (contraceptive) 0.35 mg PO QAM 10/12/19 10/19/19 Unknown bupropion HCl 300 mg 24 hr tablet, 450 mg PO QAM tab 10/19/19 10/19/19 Unknown extended release buspirone 15 mg tablet 35 mg PO BID tab 10/19/19 10/19/19 Unknown lorazepam 0.5 mg tablet 0.5 mg PO DAILY PRN 10/19/19 10/19/19 Unknown sertraline 50 mg tablet 50 mg PO DAILY 10/19/19 10/19/19 Unknown Past Medical History Medical History Anxiety (Acute) Asthma (Acute) SEVERE ASTHMA, PER PATIENT. FOLLOWED BY [facility]. HAS BEEN CONTROLLED WITHIN THE LAST YEAR AND HAS USED RESCUE INHALER ONLY ABOUT 1 TIME IN LAST 3 MONTHS. Depression (Acute) DVT (deep venous thrombosis) 04/2019. SEEN BY [facility]EME AND PUT ON ELIQUIS X 6 MONTHS Heterozygous factor V Leiden mutation (Acute) No medications; See MFM and Hem/Onc; no treatment unless needs c/section Miscarriage Nocturnal hypoxia NO LONGER NEEDS O2 AT NIGHT. REPORTS IT WAS RELATED TO HER PREVIOUSLY U NCONTROLLED ASTHMA. PCOS (polycystic ovarian syndrome) (Acute) Pulmonary embolism 04/2019 Uterine leiomyoma (Acute) fibroid Exercise / Class Metabolic Activity II 4-5 Yardwork/Stairs/Walk up hill Past Family History Family History Mother Anxiety Depression with anxiety Depression Factor V Leiden mutation Gallbladder disease Grandfather (Paternal) Diabetes Brother Drug abuse Kidney stones Aunt Factor V Leiden mutation Lung cancer Cancer Denies family history of Ovarian cancer Prostate cancer Myocardial infarction Breast cancer Colorectal cancer Past Surgical History Surgical History History of cholecystectomy at age 23 Hx of appendectomy at age 22 [place] teeth extracted removed as a teenager Past Anesthesia History No Hx of Anesthesia Complications and No Family Hx of Anesthesia Complications History of PONV No Hx of PONV and No Hx of Motion Sickness Social History Smoking Status: Former smoker Do You Dip or Chew Tobacco: No Smoking End Date: QUIT "YEARS AGO" Hx Alcohol Use: No Hx Substance Use: No substance use type: does not use Review of Systems Pt denies any recent chest pain, shortness of breath, palpitations, cough, fever or URI. Physical Exam Vital Signs BP: 120/86 P: 76bpm SPO2: 98% RA T: 98.6 F R: 16 Constitutional + obese ENMT Mouth: + chipped teeth (few chipped molars); no dental restorations and no loose teeth Thyromental Distance: > or= 3.5 Finger Breadths (3.5) Mallampati Class: II +TONGUE RING -- pt instructed to remove prior to surgery. Neck normal visual inspection; neck extension not limited Respiratory normal respiratory effort Auscultation: lungs clear to auscultation bilaterally Cardiovascular Rate/Rhythm: regular rate and regular rhythm Heart Sounds: no murmur Testing Laboratory Results 10/19/19 11:25 Blood Type A Positive 10/19/19 11:25 Antibody Screen NEGATIVE 10/19/19 11:25 Electrocardiogram Date: 04/18/19 Findings: + NSR @ (69bpm) *poor data quality
[2019-10-19 12:27] LABS: Basophils # (auto) 0.02 K/uL (0-0.2); Basophils % (auto) 0.2 %; Eosinophils # (auto) 0.27 K/uL (0-0.5); Eosinophils % (auto) 2.7 %; Hemoglobin 12.5 g/dL (12.0-16.0); Immature Granulocytes # (auto) 0.02 K/uL (0.00-0.02); Immature Granulocytes % (auto) 0.2 %; Lymphocytes # (auto) 2.21 K/uL (1.2-3.4); Lymphocytes % (auto) 22.3 %; Mean Corpuscular Hemoglobin 27.7 pg (25-34); Mean Corpuscular Hgb Conc 32.9 g/dL (32-36); Mean Corpuscular Volume 84.1 fL (80-100); Mean Platelet Volume 10.2 fL (7.4-10.4); Monocytes # (auto) 0.52 K/uL (0.11-0.59); Monocytes % (auto) 5.3 %; Neutrophils # (auto) 6.85 K/uL (1.4-6.5); Neutrophils % (auto) 69.3 %; Platelet Count 246 K/uL (130-400); RDW Coefficient of Variation 14.4 % (11.5-14.5); RDW Standard Deviation 44.2 fL (36.4-46.3); Red Blood Count 4.52 M/uL (4.2-5.4); White Blood Count 9.89 K/uL (4.8-10.8)
[~2019-11-04 11:20] MED LIST changes: +CEFAZOLIN 3000MG 72.5 ML IV SCH; -CLC100 PO; +DEXAMETHASONE SOD INJ 4 MG/ML VIAL ONE; -FRRS300 PO; +GLYCOPYRROLATE 0.2 MG/ML VIAL ONE; +LACTATED RINGER'S 1,000 ML IV SCH; +LIDOCAINE HCL 2% 2 ML VIAL/AMP(20MG/ML) INFIL ONE; +LR 15ML/HR IV SCH; +MIDAZOLAM HCL 1 MG/ML 2ML VIAL ONE; -MTR600X PO; +NEOSTIGMINE METHYLSULFATE 5 MG/5 ML SYR ONE; +ONDANSETRON INJ 2 MG/ML 2 ML VIAL ONE; +PHENAZOPYRIDINE HCL 100 MG TAB PO SCH; -PRENTAB26 PO; +PROPOFOL IV EMULSION 10 MG/ML 20 ML VIAL IV ONE; +ROCURONIUM BROMIDE 10 MG/ML 5 ML VIAL ONE; +fentaNYL citrate 100 MCG/2 ML VIAL ONE
[2019-11-04 12:06] LABS: Basophils # (auto) 0.01 K/uL (0-0.2); Basophils % (auto) 0.1 %; Eosinophils # (auto) 0.33 K/uL (0-0.5); Eosinophils % (auto) 4.9 %; Hematocrit (blood only) 36.9 % (37-47); Hemoglobin 12.2 g/dL (12.0-16.0); Immature Granulocytes # (auto) 0.02 K/uL (0.00-0.02); Immature Granulocytes % (auto) 0.3 %; Lymphocytes # (auto) 2.16 K/uL (1.2-3.4); Mean Corpuscular Volume 84.6 fL (80-100); Monocytes # (auto) 0.41 K/uL (0.11-0.59); Monocytes % (auto) 6.1 %; Neutrophils # (auto) 3.83 K/uL (1.4-6.5); Neutrophils % (auto) 56.6 %; Platelet Count 236 K/uL (130-400); RDW Coefficient of Variation 14.3 % (11.5-14.5); RDW Standard Deviation 44.5 fL (36.4-46.3); Red Blood Count 4.36 M/uL (4.2-5.4); White Blood Count 6.76 K/uL (4.8-10.8)
[2019-11-04] MEDS ORDERED: BUPIVACAINE 0.5 % 5 MG/1 ML MPF 30ML VIAL ONE (12:06)
--- NOTE | 2019-11-04 12:24 | History & Physical Bridge Note ---
Date of Service November 04, 2019 History & Physical Bridge Note I have examined the patient, reviewed the History & Physical and in the interval since the performance of the History & Physical I have noted the following changes of clinical significance: no changes noted
[2019-11-04 12:27] LABS: Mean Corpuscular Hgb Conc 33.1 g/dL (32-36)
[2019-11-04] MEDS ORDERED: fentaNYL citrate 100 MCG/2 ML VIAL ONE (13:05)
[2019-11-04] MEDS ORDERED: PHENYLEPHRINE HCL 10 MG/ML VIAL ONE (13:17)
[2019-11-04] MEDS ORDERED: TISSEEL FIBRIN SEALANT 4ML TOP ONE (13:29)
[2019-11-04] MEDS ORDERED: ePHEDrine sulfate 50 MG/ML AMP IV PRN (14:17)
[2019-11-04] MEDS ORDERED: ONDANSETRON INJ 2 MG/ML 2 ML VIAL IV PRN ×2 (14:17→15:18)
[2019-11-04] MEDS ORDERED: ATROPINE SULFATE 0.1 MG/ML 10ML SYR IV PRN (14:17)
[2019-11-04] MEDS ORDERED: ONDANSETRON INJ 2 MG/ML 2 ML VIAL ONE (15:08)
[2019-11-04] MEDS ORDERED: GLYCOPYRROLATE 0.2 MG/ML VIAL ONE (15:08)
[2019-11-04] MEDS ORDERED: NEOSTIGMINE METHYLSULFATE 5 MG/5 ML SYR ONE (15:08)
[2019-11-04] MEDS ORDERED: OXYCODONE/ACETAMINOPHEN 5mg/325mg TAB PO PRN ×2 (15:18)
[2019-11-04] MEDS ORDERED: ACETAMINOPHEN 325 MG TAB PO PRN (15:18)
[2019-11-04] MEDS ORDERED: IBUPROFEN 600 MG TAB PO PRN (15:18)
[2019-11-04] MEDS ORDERED: KETOROLAC 30 MG/ML VIAL IV PRN (15:18)
--- NOTE | 2019-11-04 15:18 | Post Operative Brief Note ---
PG Immediate Post Op with CF Date of Surgery November 04, 2019 Pre & Post Diagnosis Operation Date: 11/04/19 12:40 Pre-Op Diagnosis: Uterine Fibroid, Polycystic Ovarian Syndrome Post-Op Diagnosis: Uterine Fibroid, Polycystic Ovarian Syndrome I identified the patient and participated in the time-out.: Yes Procedure Operation Date: 11/04/19 12:40 Actual Procedures p Robotic Total Laparoscopic Hysterectomy, Bilateral Salpingectomy, Cystoscopy - Emanuel Fernandez MD Surgeon Emanuel Fernandez MD Court Interpreter None Estimated Blood Loss 200 Findings Consistent with Post-Op Diagnosis Specimens Specimen Description: A. uterus, cervix, bilateral fallopian tubes Drains Cadena Catheter
[2019-11-04] MEDS: fentaNYL citrate 100 MCG/2 ML VIAL IV PRN ×2 (15:55→16:00)
--- NOTE | 2019-11-04 16:05 | Anesthesiology Progress Note ---
Date of Service November 04, 2019 Anesthesia Post Procedure Vital Signs Vital Signs: Temp Pulse Pulse Resp BP Pulse Ox 11/04/19 15:55 62 18 136/86 100 11/04/19 15:45 77 20 133/79 100 11/04/19 15:35 96.8 F L 105 H 18 111/71 99 11/04/19 11:40 98.4 F 70 18 111/79 98 Pain Intensity Abdomen: Pain Intensity: 4 Transfer of Care Handoff Completed per policy Notes Mental Status: alert / awake / arousable and participated in evaluation Patient Amnestic to Procedure: Yes Nausea / Vomiting: adequately controlled Pain: adequately controlled Airway Patency, RR, SpO2: stable & adequate BP & HR: stable & adequate Hydration State: stable & adequate Anesthetic Complications: no major complications apparent and Pt Satisfied with anesthetic care
[2019-11-04] MEDS: DOCUSATE SODIUM 100 MG CAP PO SCH (21:42)
--- NOTE | 2019-11-05 02:57 | Operative Report (OR) ---
DATE OF OPERATION: 11/04/2019 PROCEDURE: Robotic-assisted total laparoscopic hysterectomy, bilateral salpingectomy and cystoscopy. SURGEON: Emanuel Fernandez MD PREOPERATIVE DIAGNOSES: 1. Enlarged fibroid uterus. 2. Dysfunctional uterine bleeding. 3. Pelvic pain. POSTOPERATIVE DIAGNOSES: 1. Enlarged fibroid uterus. 2. Dysfunctional uterine bleeding. 3. Pelvic pain. 4. Status post procedure. ESTIMATED BLOOD LOSS: 200 mL. DRAINS: Cadena catheter. FLUIDS: Continuous lactated ringer. URINE OUTPUT: Per Cadena catheter. COMPLICATIONS: None. FINDINGS: There was noted to be an enlarged fibroid uterus measuring approximately 12-week size. There is a large roughly 5 cm posterior fibroid. Both ovaries were normal-appearing. The patient had an umbilical hernia with omentum in the hernia sac. This was not involved in the procedure and was not compromised. DESCRIPTION OF PROCEDURE: The patient was taken to the operating room after consents were ensured. Upon presentation, she was properly identified. General endotracheal anesthesia was obtained without difficulty. The patient was then prepped and draped in normal sterile fashion. A preprocedural timeout was then performed. A Cadena catheter was placed. A speculum was placed in the vagina. Cervix visualized. Single tooth tenaculum was placed on the superior aspect of the cervix. The VCare uterine manipulator was then placed per client professional specifications. The laparoscopic portion of the case was initiated. A 12 mm incision was made on the superior aspect of the umbilicus. The Veress needle was inserted through the incision and the abdomen was insufflated to 15 mmHg. There was noted to be an opening pressure of 1 mmHg and symmetric abdominal rise and tympany over the liver consistent with appropriate intra-abdominal insufflation. DICTATION ENDS HERE I attest to the content of the Intraoperative Record and any orders documented therein. Any exception s are noted below.
--- NOTE | 2019-11-05 04:50 | Operative Report (OR) ---
DATE OF OPERATION: 11/04/2019 PROCEDURE: Robotic-assisted total laparoscopic hysterectomy, bilateral salpingectomy, and cystoscopy. SURGEON: Eamnuel Fernandez MD PREOPERATIVE DIAGNOSES: 1. Symptomatic fibroid uterus. 2. Heavy uterine bleeding. 3. Chronic pelvic pain. POSTOPERATIVE DIAGNOSES: 1. Symptomatic fibroid uterus. 2. Heavy uterine bleeding. 3. Chronic pelvic pain. 4. Status post procedure. ESTIMATED BLOOD LOSS: 200 mL. DRAINS: Cadena catheter. FLUIDS: Continuous lactated Ringer. URINE OUTPUT: Per Cadena catheter. COMPLICATIONS: None. FINDINGS: There is noted to be an enlarged fibroid uterus approximately 12-week size with a large 5-6 cm posterior wall fibroid. Both ovaries were grossly normal appearing. There was noted to be a hernia just superior to the umbilicus, that appeared to only contained omentum. It was left in place secondary to it not affecting our procedure and was asymptomatic per the patient. DESCRIPTION OF PROCEDURE: The patient was taken to the operating room after consents were ensured. Upon presentation, she was properly identified. General endotracheal anesthesia was obtained without difficulty. The patient was then prepped and draped in the normal sterile fashion. A preprocedural timeout was performed. A speculum was placed in the vagina and the Poupare uterine manipulator was placed per datastage developer's specifications. A Cadena catheter was also placed. The laparoscopic portion of the case was then initiated. An incision was made on the superior aspect of the umbilicus to accommodate a 12-mm trocar. A Veress needle was inserted through the incision. Abdomen was insufflated to 15 mmHg. There was noted to be symmetric abdominal rise and tympany over the liver and a 1 mmHg opening pressure. An optically guided trocar was then introduced through the incision and on immediate inspection was noted atraumatic entry. The omentum was noted to be just on the superior side, cephalad side of the incision and port. The 8 mm incisions and trocars were then placed in the right and left lower quadrants as well as the left upper quadrant. All the trocars were placed under direct visualization, atraumatic entry noted. On inspection, the robot was then docked and the robotic portion of the case was initiated. The left round ligament was identified, serially cauterized, and dissected. The left fallopian tube was serially cauterized, dissected back to the level of the tubal ostia. The uteroovarian ligament was then serially cauterized and dissected and carried back to the level of the previously dissected round ligament. The bladder flap was then initiated anteriorly starting from the left side and continued to midline on the right side. The broad ligament was partially dissected down to near the uterine vessels. The right side of the hysterectomy was then started and the right round ligament was identified, serially cauterized, and dissected. The right tube was then serially cauterized and dissected down back to the level of the uterine cornua. The right uteroovarian vessel was serially cauterized and dissected and continued back to the level of the round ligament. The bladder flap was then continued on the right side, continued to the left side and the bladder was dissected off the lower uterine segment and cervix. The broad ligament was then serially cauterized, dissected down to the level of the uterine vessels. Uterine vessels were then serially cauterized bilaterally and dissected. The colpotomy was then started anteriorly and continued circumferentially around the cervix until the cervix was freed from the vagina. The uterus was then brought through the uterine cuff. The vaginal cuff was then reapproximated with V-Loc suture in continuous running stitch. The abdomen was suction irrigated. A 4 mL of Tisseel was distributed throughout the raw edges of the cuff and vascular pedicles. A cystoscopy was then performed which was notable for bilateral ureteral efflux and intact bladder. The decision was made to end the laparoscopic portion of the case. The abdominal incisions were reapproximated. The umbilical fascia was reapproximated with 0 Vicryl in an interrupted stitch. All skin incisions were reapproximated with 4-0 Vicryl interrupted stitch. Dermabond was placed on top. A 7 mL of Marcaine were distributed throughout the incisions. The patient was awoken from anesthesia and taken to the recovery room in stable condition. I attest to the content of the Intraoperative Record and any orders documented therein. Any exception s are noted below.
[2019-11-05] MEDS: DOCUSATE SODIUM 100 MG CAP PO SCH (08:16)
--- NOTE | 2019-11-05 08:32 | Gynecologic Progress Note ---
Date of Service November 05, 2019 Assessment & Plan (1) Post-operative state: Post operative day 1 from [facility]. Doing well. Stable for discharge Admission and Anticipated Discharge Date Admission Date: November 04, 2019 Subjective Doing well Physical Exam Gastrointestinal (Abdomen): Percussion/Palpation: abdomen soft; abdomen nontender, no guarding and abdomen not rigid Results & Data ([facility]) Vital Signs (Past 12 Hours) Vital Signs Temp Pulse Resp BP Pulse Ox 11/05/19 08:04 36.8 C 79 20 138/82 100 11/05/19 07:45 36.8 C 79 20 138/82 11/05/19 04:01 36.9 C 75 18 119/66 11/05/19 00:00 36.7 C 48 L 18 108/72 PG Care Time/CCT Total # of Minutes Spent Total Time Spent with Patient: Total time spent is greater than 50% in coordination of care (as documented) at patient's floor/unit and/or counseling patient: Coding Level of Care Code None Diagnoses Post-operative state Z98.890
--- NOTE | 2019-11-07 20:55 | Discharge Summary (DS) ---
PROCEDURE WHILE ADMITTED: Total laparoscopic hysterectomy. HOSPITAL COURSE: The patient was admitted for a total laparoscopic hysterectomy. The procedure was performed without complication. The patient remained in house until postoperative day #1. The patient had no issues in her postoperative course and was discharged home in stable condition. Both written and verbal discharge instructions were provided to the patient. LAKEISHA
== END 2019-11-05 09:25 | disposition home or self-care (01) ==
LOC: ASU 11:20 → 4N 11:20